=== PATIENT | female | born 1995 | race Caucasian/White ===

== ENCOUNTER 2019-08-04 13:17 | Emergency (ER) | payer OTHER ==
--- OUTSIDE RECORDS SUMMARY | 2019-08-04 14:26 | XMS REPORT | Clinical Summary ---
:1995 Author Organization [facility] Address [address] [place] [address] Care Team Providers Name Role Phone Cornelio Aguirre MD Primary Care Provider Allergies Active Allergy Reactions Severity Noted Date Comments Tramadol Other (See Comments) 10/25/2015 migrain e Acetaminophen-Codeine GI Intolerance 10/25/2015 naus ea Medications Medication Sig Dispensed Refills Start Date End Date Status escitalopram TK 1 T PO QD 2 07/08/2015 Act saritha (LEXAPRO) 20 MG tablet fluticasone SPRAY 2 SPRAYS 1 07/04/2015 Ac tive (FLONASE) 50 IEN QD mcg/actuation nasal spray docusate sodium Take 1 capsule 30 capsule 0 10/25/2015 Active (COLACE) 100 MG (100 mg total) capsule by mouth 2 (two) times a day. keTOROlac (TORadol) Take 1 tablet 20 tablet 0 09/11/2018 Active 10 mg tablet (10 mg total) by mouth every 6 (six) hours as needed for moderate pain for up to 20 doses. ondansetron ODT Take 1 tablet 16 tablet 0 09/11/2018 Active (ZOFRAN ODT) 4 MG (4 mg total) disintegrating by mouth every tablet 8 (eight) hours as needed for nausea or vomiting. Dissolve one tablet on tongue Q8h prn for N/V ondansetron ODT Take 1 tablet 10 tablet 0 10/25/2015 Discontinued (ZOFRAN ODT) 8 MG (8 mg total) 9 disintegrating by mouth every tablet 8 (eight) hours as needed for nausea or vomiting. HYDROcodone-acetamin Take 1-2 40 tablet 0 09/11/2018 11/01/19 1 ophen (NORCO) 5-325 tablets by 9 mg per tablet mouth every 4 (four) hours as needed for moderate pain for up to 50 days. Max Daily Amount: 12 tablets Active Problems Problem Noted Date S/P shoulder surgery 10/31/2018 [place]art lesion of left shoulder 10/31/2018 Anterior dislocation of left shoulder 09/01/2018 Instability of left shoulder joint 07/19/2018 Encounters Date Type Specialty Care Team Description 01/06/2019 Office Visit Orthopedic Surgery Pal Gonzales, Ant erior dislocation of left shoulder, subsequent encounter (Primary Dx); Bankart lesion of left shoulder, subsequent encounter; Instability of left shoulder joint 10/31/2018 Office Visit Orthopedic Surgery Pal Gonzales, Ant erior dislocation of left shoulder, subsequent encounter (Primary Dx); S/P shoulder house rgery; Bankart lesion of left shoulder, subsequent encounter 09/15/2018 Office Visit Orthopedic Surgery Peter Willoughby, Lef t shoulder pain, unspecified chronicity (Primary Dx); PA-C Bankart lesion of left shoulder, subsequent encounter 09/11/2018 Documentation Orthopedic Surgery Pal Gonzales MD 09/11/2018 Orders Only Orthopedic Surgery Pal Gonzales MD 09/09/2018 Orders Only Orthopedic Surgery Peter Willoughby, DAGOBERTOC 09/01/2018 Office Visit Orthopedic Surgery Pal Gonzales, Ins tability of left shoulder joint (Primary Dx); Anterior disloc ation of left shoulder, initial encounter 08/28/2018 Office Visit Sports Medicine Elias Aguirre, Instab ility of left MD shoulder joint (Primary Dx) 08/06/2018 Documentation Orthopedic Surgery Elias Aguirre MD after 08/03/2018 Family History Medical History Relation Name Comments Cancer Maternal Grandfather Heart disease Maternal Grandfather Heart disease Mother Cancer Paternal Grandfather Heart disease Paternal Grandfather Relation Name Status Comments Maternal Grandfather Mother Paternal Grandfather Social History Tobacco Use Types Packs/Day Years Used Date Never Smoker Smokeless Tobacco: Never Used Alcohol Use Drinks/Week oz/Week Comments No Sex Assigned at Date Recorded Not on file Job Start Date Occupation Industry Not on file Not on file Not on file Travel History Travel Start Travel End No recent travel history available. Last Filed Vital Signs Not on file Plan of Treatment Health Maintenance Due Date Last Done Comments CHLAMYDIA SCREENING 2013 CERVICAL CANCER SCREENING 2018 INFLUENZA VACCINE 09/12/2019 Implants Implanted Type Area Metal Fabricator Apprentice Device Shelf Model / Identifier Expiration Serial / Date Lot Xtendobutton Fixation Device - [id number] IMPLANT Left: [employer]W 07/13/2020 [id number] / Implanted: Qty: 1 on 10/25/2015 by Mikie Thomas MD at [facility] DEVICES Knee [employer]ICINE / (ENDO) [id number] Device Fml Fxtn Acl Recon 10mm Endobutton Cl Ultra - [id number] Or thopedic Left: ENCISO AND 07/13/2020 [id number] / Implanted: Qty: 1 on 10/25/2015 by Mikie Thomas MD at [facility] Trauma Knee NEPHEW / Implants ENDOSCOPY [id number] Gattman Sut Footprint Ult 5.5mm - [id number] Orthopedic Left: ENCISO AND 09/14/2020 [id number] / Implanted: Qty: 1 on 10/25/2015 by Mikie Thomas MD at [facility] Trauma Knee NEPHEW / Implants ENDOSCOPY [id number] Gattman Sut Footprint Ult 5.5mm - [id number] Orthopedic Left: ENCISO AND 09/14/2020 [id number] / Implanted: Qty: 1 on 10/25/2015 by Mikie Thomas MD at [facility] Trauma Knee NEPHEW / Implants ENDOSCOPY [id number] System Mnscl Rpr Crvd Ab Ultra Fast Fix - [id number] Orthopedic Left: ENCISO AND 01/22/2020 [id number] / Implanted: 10/25/2015 by Mikie Thomas MD at [facility] (Quantity not on file) Trauma Knee NEPHEW / Implants ENDOSCOPY Biosure Pk Screw Left: ENCISO AND 07/18/2020 [id number] / Implanted: Qty: 1 on 10/25/2015 by Mikie Thomas MD at [facility] Knee NEPHEW / ENDOSCOPY [id number] Procedures Procedure Name Priority Date/Time Associated Diagnosis Comme nts XR SHOULDER 2+ VW Routine 09/15/2018 1:13 PM Left shoulder pa in, Results for this LEFT CDT unspecified procedure are i n chronicity the results section. after 08/03/2018 Results XR Shoulder 2+ Vw Left (09/15/2018 1:13 PM CDT) Specimen Narrative Performed At This result has an attachment that is no t available. 2 views, benign postop [facility] Performing Organization Address City/State/Zipcode Phone Number [facility] [address] 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
[2019-08-04] MEDS ORDERED: NA CHLORIDE 0.9% 0 ML ONE (14:56)
[2019-08-04] MEDS ORDERED: PROMETHAZINE INJ 25 MG/ML AMP ONE (14:56)
[2019-08-04] MEDS ORDERED: KETOROLAC 30 MG/ML INJ ONE ×2 (14:56→15:22)
[2019-08-04] MEDS ORDERED: DIPHENHYDRAMINE 50 MG/ML VIAL ONE ×2 (14:56→15:22)
[2019-08-04] MEDS ORDERED: NA CHLORIDE 0.9% 1,000 ML ONE ×3 (15:22→23:00)
[2019-08-04] MEDS ORDERED: METOCLOPRAMIDE 10 MG/2mL INJ ONE ×2 (15:22→17:47)
--- NOTE | 2019-08-04 16:13 | ER ---
Nurse's Notes [facility] Name: Allyson Murillo Age: 24 yrs Sex: Female : 1995 Arrival Date: 08/04/2019 Time: 13:21 Bed 16 Private MD: Diagnosis: Headache Presentation: 08/03 13:45 Chief complaint: Patient states: Headache, that is constant for the past 3 days. I ca1 called my doctor and she said to come to the ER. Reports nausea, dizziness. Denies vomiting. Coronavirus screen: Proceed with normal triage. Patient denies a cough. Patient denies shortness of breath or difficulty breathing. Patient denies measured and/or subjective temperature greater than 100.4F prior to today's visit. Patient denies travel on a cruise ship or to a country the [facility] currently lists as an affected area. Patient denies contact with known and/or suspected case of COVID-19. Ebola Screen: Patient negative for fever greater than or equal to 101.5 degrees Fahrenheit, and additional compatible Ebola Virus Disease symptoms Patient denies exposure to infectious person. Patient denies travel to an Ebola-affected area in the 21 days before illness onset. No symptoms or risks identified at this time. Initial Sepsis Screen: Does the patient meet any 2 criteria? No. Patient's initial sepsis screen is negative. Does the patient have a suspected source of infection? No. Patient's initial sepsis screen is negative. Risk Assessment: Do you want to hurt yourself or someone else? Patient reports no desire to harm self or others. Onset of symptoms was August 04, 2019. 13:45 Method Of Arrival: Ambulatory ca1 13:45 Acuity: JAE 3 ca1 Triage Assessment: 14:16 Headache History: The patient has had previous headaches and this one is similar to bp previous episodes. General: Appears in no apparent distress. uncomfortable, Behavior is cooperative, appropriate for age, anxious. Pain: Pain currently is 6 out of 10 on a pain scale. Pain began 2-3 days ago. Also complains of no other associated symptoms. EENT: No deficits noted. Neuro: Reports headache. Cardiovascular: No deficits noted. Respiratory: No deficits noted. GI: No signs and/or symptoms were reported involving the gastrointestinal system. : No signs and/or symptoms were reported regarding the genitourinary system. Derm: No deficits noted. Musculoskeletal: No deficits noted. [employer]ETING: 13:48 LMP 08/03/2019 ca1 Historical: - Allergies: 13:48 Rifampin; ca1 - Home Meds: 13:48 Effexor Oral [Active]; ca1 - PMHx: 13:48 Anxiety; Depression; ca1 - PSHx: 13:48 Knee surgery; ca1 - Immunization history:: Adult Immunizations up to date. - Social history:: Smoking status: Patient denies any tobacco usage or history of. Screenin:17 Abuse screen: Denies threats or abuse. Denies injuries from another. Nutritional bp screening: No deficits noted. Tuberculosis screening: No symptoms or risk factors identified. Fall Risk None identified. Assessment: 14:17 General: SEE TRIAGE NOTE. bp 15:44 Reassessment: PT SLEEPING, IVF INFUSING. bp 16:42 Reassessment: D/C ON HOLD FOR IVF COMPLETION. bp 17:33 Reassessment: PT STATES NO CHANGE IN MIGRAINE STATUS. PROVIDER INFORMED. D/C HELD FOR bp FURTHER MEDS AND CT HEAD. 18:47 Reassessment: CT COMPLETED. PT RESTING QUIETLY. bp 19:39 Reassessment: reporting a continued headache, provider notified, awaiting orders. jd3 General: Appears in no apparent distress. uncomfortable, Behavior is calm, cooperative, appropriate for age. Pain: Complains of pain in head Quality of pain is described as sharp. Neuro: Level of Consciousness is awake, alert, obeys commands, Oriented to person, place, time, situation, Reports headache. Cardiovascular: Denies chest pain, Capillary refill < 3 seconds Patient's skin is warm and dry. Respiratory: Airway is patent Respiratory effort is even, unlabored, Respiratory pattern is regular, symmetrical, Denies cough, shortness of breath. GI: No signs and/or symptoms were reported involving the gastrointestinal system. : No signs and/or symptoms were reported regarding the genitourinary system. EENT: No signs and/or symptoms were reported regarding the EENT system. Derm: Skin is intact, Skin is dry, Skin is normal, Skin temperature is warm. Musculoskeletal: Circulation, motion, and sensation intact. Range of motion: intact in all extremities. 20:05 Reassessment: LP consent signed. jd3 20:48 Reassessment: Patient appears in no apparent distress at this time. Patient and/or jd3 family updated on plan of care and expected duration. Pain level reassessed. Patient is alert, oriented x 3, equal unlabored respirations, skin warm/dry/pink. awaiting LP. 22:35 Reassessment: LP performed by Jose PUGA. jd3 23:07 Reassessment: Patient appears in no apparent distress at this time. Patient and/or jd3 family updated on plan of care and expected duration. Pain level reassessed. Patient is alert, oriented x 3, equal unlabored respirations, skin warm/dry/pink. 08/04 00:22 Reassessment: Patient appears in no apparent distress at this time. Patient and/or jd3 family updated on plan of care and expected duration. Pain level reassessed. Patient is alert, oriented x 3, equal unlabored respirations, skin warm/dry/pink. reporting continued headache, pt reporting pain at a tolerable level. Neuro: Level of Consciousness is awake, alert, obeys commands, Oriented to person, place, time, situation, Reports headache. 01:35 Reassessment: Patient appears in no apparent distress at this time. Patient and/or jd3 family updated on plan of care and expected duration. Pain level reassessed. Patient is alert, oriented x 3, equal unlabored respirations, skin warm/dry/pink. Vital Signs: 08/03 13:45 BP 118 / 77; Pulse 75; Resp 16 S; Temp 97.6(TE); Pulse Ox 100% on R/A; Weight 79.38 kg ca1 (R); Height 5 ft. 3 in. (160.02 cm) (R); Pain 5/10; 15:44 BP 114 / 78; Pulse 63; Resp 16; Pulse Ox 100% ; bp 16:42 BP 97 / 64; Pulse 57; Resp 14; Pulse Ox 100% ; bp 17:12 BP 91 / 56; Pulse 66; Resp 14; Pulse Ox 99% ; bp 18:47 BP 109 / 74; Pulse 49; Resp 16; Pulse Ox 98% ; bp 19:41 BP 102 / 65; Pulse 56; Resp 17 S; Pulse Ox 100% on R/A; jd3 20:48 BP 101 / 64; Pulse 53; Resp 16 S; Pulse Ox 98% on R/A; jd3 23:07 BP 95 / 51; Pulse 57; Resp 17 S; Pulse Ox 98% on R/A; jd3 08/04 00:23 BP 91 / 57; Pulse 62; Resp 15 S; Pulse Ox 98% on R/A; jd3 01:35 BP 92 / 52; Pulse 52; Resp 17 S; Pulse Ox 97% on R/A; jd3 08/03 13:45 Body Mass Index 31.00 (79.38 kg, 160.02 cm) ca1 Krista Coma Score: 08/03 14:47 Eye Response: spontaneous(4). Verbal Response: oriented(5). Motor Response: obeys kb commands(6). Total: 15. ED Course: 13:21 Patient arrived in ED. mr 13:47 Triage completed. ca1 13:48 Arm band placed on right wrist. ca1 14:14 Jonas Guillermo, RN is Primary Nurse. bp 14:17 Telma Gates FNP-C is PHCP. kb 14:17 Beni Knott MD is Attending Physician. kb 14:17 Patient has correct armband on for positive identification. Bed in low position. Call bp light in reach. Side rails up X2. 15:12 Inserted saline lock: 22 gauge in right forearm, using aseptic technique. Blood bp collected. 17:32 PHCP role handed off by Telma Gates FNP-C [facility] 17:32 Jose Blanton PA is PHCP. [facility] 19:24 CT Head Brain wo Cont In Process Unspecified. EDMS 08/04 01:35 No provider procedures requiring assistance completed. IV discontinued, intact, jd3 bleeding controlled, No redness/swelling at site. Pressure dressing applied. Administered Medications: 08/03 14:45 Drug: NS 0.9% 1000 ml Route: IV; Rate: 1000 ml; Site: right forearm; bp 17:47 Follow up: IV Status: Completed infusion; IV Intake: 1000ml bp 14:45 Drug: Reglan 10 mg Route: IVP; Site: right forearm; bp 17:12 Follow up: Response: No adverse reaction bp 14:45 Drug: Benadryl 12.5 mg Route: IVP; Site: right forearm; bp 17:13 Follow up: Response: Marked relief of symptoms bp 14:45 Drug: TORadol - Ketorolac 15 mg Route: IVP; Site: right forearm; bp 17:12 Follow up: Response: Pain is decreased bp 17:30 Drug: NS 0.9% 1000 ml Route: IV; Rate: 1000 ml; Site: right forearm; bp 17:35 Drug: Reglan 10 mg Route: IVP; Site: right forearm; bp 23:04 Drug: NS 0.9% 1000 ml Route: IV; Rate: 1 bolus; Site: right antecubital; jd3 08/04 01:36 Follow up: Response: No adverse reaction; IV Status: Completed infusion; IV Intake: jd3 1000ml 08/03 23:05 Drug: morphine 4 mg Route: IVP; Site: right antecubital; jd3 08/04 00:05 Follow up: Response: No adverse reaction jd3 08/03 23:05 Drug: Zofran (Ondansetron) 4 mg Route: IVP; Site: right antecubital; jd3 08/04 01:36 Follow up: Response: No adverse reaction jd3 Intake: 08/03 17:47 IV: 1000ml; Total: 1000ml. bp 08/04 01:36 IV: 1000ml; Total: 2000ml. jd3 Outcome: 08/03 16:12 Discharge ordered by MD. kb 19:31 Discharge ordered by MD. [facility] 08/04 01:05 Discharge ordered by MD. [facility] 01:36 Discharged to home ambulatory, with family. jd3 01:36 Condition: stable 01:36 Discharge instructions given to patient, Instructed on discharge instructions, follow up and referral plans. Demonstrated understanding of instructions, follow-up care. 01:37 Patient left the ED. jd3 Signatures: Dispatcher [employer] EDMS Telma Gates, MARITZA MANZO-Jose Lipscomb PA PA [facility] Janette UreñaiesTunde RN RN jd3 Jonas Guillermo RN RN bp Acob, Cheryl, RN RN ca1 Corrections: (The following items were deleted from the chart) 08/03 15:14 15:13 NS 0.9% 1000 ml IV at 1000 ml in right forearm bp bp 08/04 00:23 00:23 BP 88 / 48; Pulse 62bpm; Resp 15bpm; Spontaneous; Pulse Ox 98% RA; jd3 jd3 00:24 00:23 BP 88 / 58; Pulse 62bpm; Resp 15bpm; Spontaneous; Pulse Ox 98% RA; jd3 jd3
--- NOTE | 2019-08-04 16:13 | EDPHYS ---
Physician Documentation [facility] Name: Allyson Murillo Age: 24 yrs Sex: Female : 1995 Arrival Date: 08/04/2019 Time: 13:21 Bed 16 Private MD: ED Physician Beni Knott HPI: 08/03 14:58 This 24 yrs old Female presents to ER via Ambulatory with complaints of kb Headache. 15:08 The patient complains of pain to the top of head. The patient describes the headache as kb constant. Onset: The symptoms/episode began/occurred 3 day(s) ago. Associated signs and symptoms: Pertinent positives: nausea. Severity of symptoms: At its worst the pain was mild, moderate, in the emergency department the pain is unchanged. Headache History: The patient has had previous headaches and this one is similar to previous episodes. The symptoms are alleviated by nothing. the symptoms are aggravated by nothing. The patient has experienced similar episodes in the past. The patient has not recently seen a physician. Pt reports headache for 3 days. Similar to previous headaches, but lasting longer. Hx of migraines. Pt reports she was out in the sun all day Saturday, then again on Saturday. May have got dehydrated or overheated triggering migraine. . 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 - Social history:: Smoking status: Patient denies any tobacco usage or history of. ROS: 14:57 Constitutional: Negative for fever, chills, and weight loss, Eyes: Negative for injury, kb pain, redness, and discharge, ENT: Negative for injury, pain, and discharge, Neck: Negative for injury, pain, and swelling, Cardiovascular: Negative for chest pain, palpitations, and edema, Respiratory: Negative for shortness of breath, cough, wheezing, and pleuritic chest pain, Abdomen/GI: Negative for abdominal pain, vomiting, diarrhea, and constipation. +nausea Back: Negative for injury and pain, MS/Extremity: Negative for injury and deformity, Skin: Negative for injury, rash, and discoloration. 14:57 Neuro: Positive for headache. Exam: 14:57 Constitutional: This is a well developed, well nourished patient who is awake, alert, kb and in no acute distress. Head/Face: Normocephalic, atraumatic. Eyes: Pupils equal round and reactive to light, extra-ocular motions intact. Lids and lashes normal. Conjunctiva and sclera are non-icteric and not injected. Cornea within normal limits. Periorbital areas with no swelling, redness, or edema. Neck: Trachea midline, no thyromegaly or masses palpated, and no cervical lymphadenopathy. Supple, full range of motion without nuchal rigidity, or vertebral point tenderness. No Meningismus. Chest/axilla: Normal chest wall appearance and motion. Nontender with no deformity. No lesions are appreciated. Cardiovascular: Regular rate and rhythm with a normal S1 and S2. No gallops, murmurs, or rubs. Normal PMI, no JVD. No pulse deficits. Respiratory: Lungs have equal breath sounds bilaterally, clear to auscultation and percussion. No rales, rhonchi or wheezes noted. No increased work of breathing, no retractions or nasal flaring. Abdomen/GI: Soft, non-tender, with normal bowel sounds. No distension or tympany. No guarding or rebound. No evidence of tenderness throughout. Skin: Warm, dry with normal turgor. Normal color with no rashes, no lesions, and no evidence of cellulitis. MS/ Extremity: Pulses equal, no cyanosis. Neurovascular intact. Full, normal range of motion. Neuro: Awake and alert, GCS 15, oriented to person, place, time, and situation. Cranial nerves II-XII grossly intact. Motor strength 5/5 in all extremities. Sensory grossly intact. Cerebellar exam normal. Normal gait. Vital Signs: 13:45 BP 118 / 77; Pulse 75; Resp 16 S; Temp 97.6(TE); Pulse Ox 100% on R/A; Weight 79.38 kg ca1 (R); Height 5 ft. 3 in. (160.02 cm) (R); Pain 5/10; 15:44 BP 114 / 78; Pulse 63; Resp 16; Pulse Ox 100% ; bp 16:42 BP 97 / 64; Pulse 57; Resp 14; Pulse Ox 100% ; bp 17:12 BP 91 / 56; Pulse 66; Resp 14; Pulse Ox 99% ; bp 18:47 BP 109 / 74; Pulse 49; Resp 16; Pulse Ox 98% ; bp 19:41 BP 102 / 65; Pulse 56; Resp 17 S; Pulse Ox 100% on R/A; jd3 20:48 BP 101 / 64; Pulse 53; Resp 16 S; Pulse Ox 98% on R/A; jd3 23:07 BP 95 / 51; Pulse 57; Resp 17 S; Pulse Ox 98% on R/A; jd3 08/04 00:23 BP 91 / 57; Pulse 62; Resp 15 S; Pulse Ox 98% on R/A; jd3 01:35 BP 92 / 52; Pulse 52; Resp 17 S; Pulse Ox 97% on R/A; jd3 08/03 13:45 Body Mass Index 31.00 (79.38 kg, 160.02 cm) ca1 [place] Coma Score: 08/03 14:47 Eye Response: spontaneous(4). Verbal Response: oriented(5). Motor Response: obeys kb commands(6). Total: 15. MDM: 14:17 Patient medically screened. kb 14:47 Data reviewed: vital signs, nurses notes. Data interpreted: Pulse oximetry: on room air kb is 100 %. Interpretation: normal. 14:58 Counseling: I had a detailed discussion with the patient and/or guardian regarding: the kb historical points, exam findings, and any diagnostic results supporting the discharge/admit diagnosis, the need for outpatient follow up, a neurologist, to return to the emergency department if symptoms worsen or persist or if there are any questions or concerns that arise at home. 19:30 ED course: Patient has similar character of headache. Patient advised to follow up with [facility] neuro for reevaluation and otherwise given strict return precautions. Patient understood and agrees with the plan of care. . 08/04 00:52 Order name: CSF SPECIMEN; Complete Time: 00:57 EDMS 08/04 00:52 Order name: Cell Count Profile; Complete Time: 00:57 EDMS 08/03 17:27 Order name: CT Head Brain wo Cont kb 08/04 00:52 Order name: CSF Glucose; Complete Time: 00:57 EDMS 08/04 00:52 Order name: CSF Total Protein; Complete Time: 00:57 EDMS 08/04 00:52 Order name: Body Fluid Cell Count; Complete Time: 00:57 EDAZ 08/04 00:52 Order name: CSF Culture [facility] 08/04 00:52 Order name: CSF Bacterial Antigens (Tube [address] [facility] 08/03 14:32 Order name: IV Start; Complete Time: 15:03 kb 08/03 19:47 Order name: LP Consents; Complete Time: 20:12 [facility] 08/03 19:47 Order name: LP Setup; Complete Time: 20:49 [facility] Administered Medications: 14:45 Drug: NS 0.9% 1000 ml Route: IV; Rate: 1000 ml; Site: right forearm; bp 17:47 Follow up: IV Status: Completed infusion; IV Intake: 1000ml bp 14:45 Drug: Reglan 10 mg Route: IVP; Site: right forearm; bp 17:12 Follow up: Response: No adverse reaction bp 14:45 Drug: Benadryl 12.5 mg Route: IVP; Site: right forearm; bp 17:13 Follow up: Response: Marked relief of symptoms bp 14:45 Drug: TORadol - Ketorolac 15 mg Route: IVP; Site: right forearm; bp 17:12 Follow up: Response: Pain is decreased bp 17:30 Drug: NS 0.9% 1000 ml Route: IV; Rate: 1000 ml; Site: right forearm; bp 17:35 Drug: Reglan 10 mg Route: IVP; Site: right forearm; bp 23:04 Drug: NS 0.9% 1000 ml Route: IV; Rate: 1 bolus; Site: right antecubital; d3 08/04 01:36 Follow up: Response: No adverse reaction; IV Status: Completed infusion; IV Intake: jd3 1000ml 08/03 23:05 Drug: morphine 4 mg Route: IVP; Site: right antecubital; jd3 08/04 00:05 Follow up: Response: No adverse reaction [facility] 08/03 23:05 Drug: Zofran (Ondansetron) 4 mg Route: IVP; Site: right antecubital; jd3 08/04 01:36 Follow up: Response: No adverse reaction jd3 Disposition: 07:15 Co-signature as Attending Physician, Beni Knott MD. rn Disposition: 08/05/19 01:05 Discharged to Home. Impression: Headache. - Condition is Stable. - Discharge Instructions: General Headache Without Cause. - Medication Reconciliation Form, Thank You Letter, Antibiotic Education, Prescription Opioid Use, Work release form form. - Follow up: Private Physician; When: Tomorrow; Reason: Recheck today's complaints, Continuance of care, Re-evaluation by your physician. Signatures: Dispatcher [employer] EDMS Telma Gates, GUIDE DOG TRAINER-C GUIDE DOG TRAINER-Ckb Jose Blanton, Beni Stephens MD MD rn Davies, Jonathon, RN RN jJonas Boyer RN RN bp Soheila Coronel RN RN ca1 Corrections: (The following items were deleted from the chart) 08/03 16:12 15:08 Pt reports headache for 3 days. Similar to previous headaches, but lasting kb longer. Hx of migraines. kb 17:49 16:12 08/04/2019 16:12 Discharged to Home. Impression: Migraine. Condition is Stable. bp Forms are Medication Reconciliation Form, Thank You Letter, Antibiotic Education, Prescription Opioid Use. Follow up: Emergency Department; When: As needed; Reason: Worsening of condition. Follow up: Private Physician; When: 2 - 3 days; Reason: Recheck today's complaints, Continuance of care, Re-evaluation by your physician. kb 19:46 19:31 08/04/2019 19:31 Discharged to Home. Impression: Headache. Condition is Stable. [facility] Forms are Medication Reconciliation Form, Thank You Letter, Antibiotic Education, Prescription Opioid Use. Follow up: Private Physician; When: 2 - 3 days; Reason: Recheck today's complaints, Continuance of care, Re-evaluation by your physician. [facility] 08/04 01:37 01:05 08/05/2019 01:05 Discharged to Home. Impression: Headache. Condition is Stable. jd3 Forms are Medication Reconciliation Form, Thank You Letter, Antibiotic Education, Prescription Opioid Use. Follow up: Private Physician; When: Tomorrow; Reason: Recheck today's complaints, Continuance of care, Re-evaluation by your physician. [facility]
--- NOTE | 2019-08-04 20:10 | RAD REPORT ---
EXAM DESCRIPTION: CT - Head Brain Wo Cont - 08/04/2019 5:58 pm CLINICAL HISTORY: Headache COMPARISON: None. TECHNIQUE: Computed axial tomography of the head was obtained. IV contrast was not requested. All CT scans are performed using dose optimization technique as appropriate and may include automated exposure control or mA/KV adjustment according to patient size. FINDINGS: An intracranial bleed is not seen . The ventricles are normal in caliber. No extra-axial fluid collection is noted. Fluid within the sinuses/ mastoids is not seen. IMPRESSION: No acute intracranial abnormality is seen. If patient's symptoms persist MRI of the bra in would be recommended.
[2019-08-04] MEDS ORDERED: LIDOCAINE 1% MPF 30 ML VIAL ONE (22:06)
[2019-08-04] MEDS ORDERED: ONDANSETRON 4 MG/2 ML VIAL ONE (23:00)
[2019-08-04] MEDS ORDERED: MORPHINE 4 MG/ML SYR ONE (23:00)
[2019-08-05 00:02] LABS: Body Fluid Source CSF; Color of fluid Colorless (COLORLESS); Fluid Total Volume 6 ml
[2019-08-05 00:03] LABS: Appearance CLEAR (CLEAR)
[2019-08-05 00:07] LABS: Body Fluid WBC 2 /mm^3
[2019-08-05 00:18] LABS: Appearance CLEAR (CLEAR); Body Fluid Source CSF; Color of fluid Colorless (COLORLESS)
[2019-08-05 00:25] LABS: CSF Glucose 56 mg/dL (40-70)
[2019-08-05 00:34] LABS: Body Fluid WBC 1 /mm^3
[2019-08-05 14:40] VITALS: TEMP 97.6
[2019-08-05 14:51] VITALS: BP 92/52; O2SAT 97
== END 2019-08-05 01:37 | disposition home or self-care (01) ==
LOC: ER 13:17
DX: R51 Headache (principal); F34.1 Dysthymic disorder; Z88.1 Allergy status to other antibiotic agents
CPT/HCPCS: 87070; 36415; 89050 ×2; 84157; 82945; 86403 ×6; 70450; 99284; J2765 ×2; J2550; J1200; J7030 ×3; J2405